=== PATIENT | female | born 1965 | race Caucasian/White ===

== ENCOUNTER 2016-05-30 18:35 | Emergency (ER) | payer OTHER ==
[~2016-05-30] VITALS: Ht 154.9 cm; Wt 104.3 kg
[~2016-05-30 18:35] MED LIST: No Historical Meds; VICO5TAB
[2016-05-30 18:36] VITALS: BP 125/84
[2016-05-30] MEDS ORDERED: ALBU17IN INH (19:01)
== END 2016-05-30 19:09 | disposition home or self-care (01) ==
LOC: M ED 19:00
DX: B34.9 Viral infection, unspecified (principal); Z76.0 Encounter for issue of repeat prescription; J44.9 Chronic obstructive pulmonary disease, unspecified; E66.9 Obesity, unspecified; F17.210 Nicotine dependence, cigarettes, uncomplicated; Z88.0 Allergy status to penicillin; Z91.012 Allergy to eggs

== ENCOUNTER 2016-07-07 16:14 | Emergency (ER) | payer OTHER ==
[~2016-07-07] VITALS: Ht 154.9 cm; Wt 106.6 kg
[~2016-07-07 16:14] MED LIST changes: +ALBU17IN INH
[2016-07-07 17:55] LABS: BASO % 0.3 % (0.0-1.0); EOS # 0.2 K/mm3 (0.0-0.50); EOS % 2.5 % (0.0-3.0); LARGE UNSTAINED CELL # 0.2 K/mm3 (0.0-0.4); LARGE UNSTAINED CELL % 1.7 % (0.0-4.0); LYMPH # 2.9 K/mm3 (1.5-4.5); MEAN CORPUSCULAR HGB CONC 32.2 g/dl (32.0-36.5); MEAN CORPUSCULAR VOLUME 93.3 fl (80.0-96.0); MONO # 0.5 K/mm3 (0.0-0.8); MONO % 4.7 % (0.0-5.0); NEUTROPHILS # 5.9 K/mm3 (1.8-7.7); NEUTROPHILS % 60.9 % (36.0-66.0); PLATELET COUNT, AUTOMATED 234 k/mm3 (150-450); RED CELL DISTRIBUTION WIDTH 13.2 % (11.5-14.5); WHITE BLOOD COUNT 9.6 K/mm3 (4.0-10.0)
[2016-07-07 18:01] LABS: ANION GAP 8 MEQ/L (8-16); BLOOD UREA NITROGEN 9 MG/DL (7-18); CALCIUM LEVEL 8.2 MG/DL (8.5-10.1); CARBON DIOXIDE LEVEL 30 MEQ/L (21-32); CHLORIDE LEVEL 104 MEQ/L (98-107); CREATININE FOR GFR 0.77 MG/DL (0.55-1.02); GLOMERULAR FILTRATION RATE > 60.0 (>51); GLUCOSE, FASTING 106 MG/DL (70-105); POTASSIUM SERUM 4.4 MEQ/L (3.5-5.1); SODIUM LEVEL 142 MEQ/L (136-145)
[2016-07-07] MEDS ORDERED: NAPR500T PO (18:11)
[2016-07-07] MEDS ORDERED: KETOROLAC 30 MG/ML VIAL (J1885) As Ordered ONE (18:14)
[2016-07-07] MEDS ORDERED: KETOROLAC 60 MG/2 ML VIAL (J1885) IM ONE (18:15)
[2016-07-07 18:41] VITALS: BP 139/82
--- NOTE | 2016-07-08 07:21 | REP ---
CERVICAL SPINE SERIES: Seven views of the cervical spine are performed. There is no compression fracture. There is normal cervical lordosis. There is no prevertebral soft tissue swelling. There is mild spurring of C6 and C7 both anteriorly and posteriorly with mild disc space narrowing and subchondral sclerosis at that level. Small ligamentous calcification is seen at the anterior margin of C5-6. There is diffuse sclerosis at the posterior facet joints. I do not see definite radiographic evidence of significant neural foraminal narrowing. IMPRESSION: Degenerative changes noted primarily at the C5-6 level. Signed by Rome Kumari MD 07/08/2016 07:51 P
== END 2016-07-07 18:42 | disposition home or self-care (01) ==
LOC: M ED 16:56
DX: M50.322 Other cervical disc degeneration at C5-C6 level (principal); F17.200 Nicotine dependence, unspecified, uncomplicated; Z88.0 Allergy status to penicillin; Z88.1 Allergy status to other antibiotic agents; Z91.012 Allergy to eggs; Z90.79 Acquired absence of other genital organ(s)
CPT/HCPCS: 36415; 72052; 80048; 85025; 96372; 99282; J1885

== ENCOUNTER 2016-09-08 22:42 | Emergency (ER) | payer OTHER ==
[~2016-09-08] VITALS: Ht 154.9 cm; Wt 105.6 kg
[~2016-09-08 22:42] MED LIST changes: +NAPR500T PO
[2016-09-08 22:48] VITALS: BP 131/75
--- NOTE | 2016-09-09 07:36 | REP ---
Left hand four views : There is no fracture or dislocation. Mineralization and joint spaces are normal. There are no calcifications or foreign bodies. Impression: Negative left hand. There is no change from the comparison study of 08/11/2014. . Signed by Rome Mckeon MD 09/09/2016 07:27 A
== END 2016-09-09 00:31 | disposition left against medical advice (07) ==
LOC: M ED 22:42
DX: Z53.29 Procedure and treatment not carried out because of patient's decision for other reasons (principal); S69.92XA Unspecified injury of left wrist, hand and finger(s), initial encounter; X58.XXXA Exposure to other specified factors, initial encounter; Y92.9 Unspecified place or not applicable; Y93.9 Activity, unspecified; Y99.9 Unspecified external cause status; F17.200 Nicotine dependence, unspecified, uncomplicated; Z90.79 Acquired absence of other genital organ(s); Z90.89 Acquired absence of other organs; Z88.0 Allergy status to penicillin; Z88.1 Allergy status to other antibiotic agents; Z91.012 Allergy to eggs

== ENCOUNTER → 2016-10-20 | Outpatient (CLI) | payer OTHER ==
[~2016-10-20] MED LIST changes: +IBUP-1022 PO; +MACR100C43 PO; +ROBA500T PO; +ZOFR4TAB3 PO
[2016-10-20 09:43] LABS: BASO % 0.4 % (0.0-1.0); EOS # 0.2 K/mm3 (0.0-0.50); EOS % 2.6 % (0.0-3.0); LARGE UNSTAINED CELL # 0.1 K/mm3 (0.0-0.4); LARGE UNSTAINED CELL % 1.7 % (0.0-4.0); LYMPH # 2.2 K/mm3 (1.5-4.5); LYMPH % 28.9 % (24.0-44.0); MEAN CORPUSCULAR HEMOGLOBIN 30.7 pg (27.0-33.0); MEAN CORPUSCULAR VOLUME 90.4 fl (80.0-96.0); MONO # 0.4 K/mm3 (0.0-0.8); MONO % 4.6 % (0.0-5.0); NEUTROPHILS # 4.8 K/mm3 (1.8-7.7); NEUTROPHILS % 61.8 % (36.0-66.0); PLATELET COUNT, AUTOMATED 225 k/mm3 (150-450); RED CELL DISTRIBUTION WIDTH 13.2 % (11.5-14.5); WHITE BLOOD COUNT 7.7 K/mm3 (4.0-10.0)
[2016-10-20 10:04] LABS: ALBUMIN 3.4 GM/DL (3.2-5.2); ALBUMIN/GLOBULIN RATIO 0.94 (1.00-1.93); ALKALINE PHOSPHATASE 84 U/L (45-117); ALT/SGPT 26 U/L (12-78); ANION GAP 8 MEQ/L (8-16); AST/SGOT 15 U/L (15-37); BILIRUBIN,TOTAL 0.4 MG/DL (0.2-1.0); BLOOD UREA NITROGEN 11 MG/DL (7-18); CALCIUM LEVEL 8.8 MG/DL (8.5-10.1); CARBON DIOXIDE LEVEL 29 MEQ/L (21-32); CHLORIDE LEVEL 106 MEQ/L (98-107); CHOLESTEROL LEVEL 240 MG/DL (<200); CREATININE FOR GFR 0.81 MG/DL (0.55-1.02); GLOMERULAR FILTRATION RATE > 60.0 (>51); GLUCOSE, FASTING 101 MG/DL (70-105); SODIUM LEVEL 143 MEQ/L (136-145); TRIGLYCERIDES LEVEL 181 MG/DL (<150)
== END ==
LOC: M LAB 09:13
PROVIDERS: ATTEND Family Medicine Addiction Medicine
DX: E78.2 Mixed hyperlipidemia (principal)

== ENCOUNTER → 2016-11-19 | Outpatient (CLI) | payer OTHER ==
[2016-11-19 17:13] LABS: FREE T4 0.76 NG/DL (0.76-1.46)
--- NOTE | 2016-11-19 21:36 | ECGEPIP ---
Stationary ECG Study [facility] Test Date: 2016-11-19 Pat Name: BLAINE BERGER Department: Room: - Gender: F Television Inspector: EZEKIEL : 1965 Requested By: Kenny Romero Order Number: [id number] Reading MD: Chad Hebert Measurements Intervals [place] Rate: 89 P: 38 LA: 124 QRS: 54 QRSD: 88 T: 42 QT: 349 QTc: 426 Interpretive Statements SINUS RHYTHM COMPARED TO THE LAST 2 TRACINGS IN THE SYSTEM, NO SIGNIFICANT CHANGES Electronically Signed On 11-19-2016 21:36:27 EDT by Chad Hebert
== END ==
LOC: M LAB 15:52
PROVIDERS: ATTEND Family Medicine Addiction Medicine
DX: R53.83 Other fatigue (principal); R07.9 Chest pain, unspecified

== ENCOUNTER → 2016-12-03 | Outpatient (CLI) | payer OTHER ==
--- NOTE | 2016-12-03 14:40 | REPMRS ---
Patient History The patient states she has not had a clinical breast exam in over a year. Patient is postmenopausal and has history of ovarian cancer at age 42. Family history of unknown cancer in 2 maternal aunts at age 50 or over, unknown cancer in paternal cousin under age 50, prostate cancer in maternal uncle at age 50 or over, prostate cancer in paternal uncle at age 50 or over, and unknown cancer in paternal uncle at age 50 or over. Digital Woman Screen Mammo: December 03, 2016 - Exam #: [id number] Bilateral MLO and CC view(s) were taken. CV view(s) were taken of the right breast. Technologist: Leeanna Kenyon, Technologist Prior study comparison: September 15, 2015, digital woman screen mammo performed at [facility]. July 16, 2014, bilateral digital mammo screening bilat, performed at [facility]. June 18, 2011, digital woman screen mammo performed at [facility]. FINDINGS: There are scattered fibroglandular densities. There has been no change in the appearance of the mammogram from the prior studies. There is a mild amount of scattered fibroglandular density which is fairly symmetric. There is no interval development of dominant mass, architectural distortion, or clustered microcalcification suggestive of malignancy. ASSESSMENT: BI-RADS/ACR category 1 mammogram. Negative. Recommendation Routine screening mammogram in 1 year (for women over age 40). This mammogram was interpreted with the aid of an FDA-approved computer-aided dectection system. Electronically Signed By: Oren Matson MD 12/03/16 [id number]
== END ==
LOC: M WHC 13:11
PROVIDERS: ATTEND Family Medicine Addiction Medicine
DX: Z12.31 Encounter for screening mammogram for malignant neoplasm of breast (principal)

== ENCOUNTER 2016-12-11 16:22 | Emergency (ER) | payer OTHER ==
[~2016-12-11] VITALS: Ht 154.9 cm; Wt 105.4 kg
[~2016-12-11 16:22] MED LIST changes: -IBUP-1022 PO; -MACR100C43 PO; -ROBA500T PO; -ZOFR4TAB3 PO
[2016-12-11] MEDS ORDERED: IBUP-1022 PO (17:39)
[2016-12-11] MEDS ORDERED: ROBA500T PO (17:39)
[2016-12-11 18:08] VITALS: BP 138/74
== END 2016-12-11 18:09 | disposition home or self-care (01) ==
LOC: M ED 16:22
DX: S16.1XXA Strain of muscle, fascia and tendon at neck level, initial encounter (principal); M54.89 Other dorsalgia; W19.XXXA Unspecified fall, initial encounter; Y92.019 Unspecified place in single-family (private) house as the place of occurrence of the external cause; Y93.89 Activity, other specified; Y99.8 Other external cause status; F17.210 Nicotine dependence, cigarettes, uncomplicated; Z88.0 Allergy status to penicillin; Z88.1 Allergy status to other antibiotic agents; Z91.030 Bee allergy status; Z91.012 Allergy to eggs

== ENCOUNTER 2016-12-31 21:15 | Emergency (ER) | payer MEDICAID, OTHER, SELFPAY ==
[~2016-12-31] VITALS: Ht 154.9 cm; Wt 105.9 kg
[~2016-12-31 21:15] MED LIST changes: +IBUP-1022 PO; +ROBA500T PO
[2016-12-31] MEDS ORDERED: ONDANSETRON 4MG/2ML VIAL (J2405) IV ONE (22:30)
[2016-12-31] MEDS ORDERED: MECLIZINE 25 MG TABLET PO ONE (22:30)
[2016-12-31] MEDS ORDERED: NS 1,000 ML IV ONE (22:30)
[2016-12-31 23:06] LABS: BASO % 0.3 % (0.0-1.0); EOS % 0.4 % (0.0-3.0); IMMATURE GRANULOCYTE % 0.3 % (0-0); LYMPH % 18.9 % (24.0-44.0); MEAN CORPUSCULAR HEMOGLOBIN 29.8 pg (27.0-33.0); MEAN CORPUSCULAR HGB CONC 33.3 g/dl (32.0-36.5); MEAN CORPUSCULAR VOLUME 89.7 fl (80.0-96.0); MONO # 0.5 10^3/uL (0.0-0.8); MONO % 4.3 % (0.0-5.0); NEUTROPHILS % 75.8 % (36.0-66.0); PLATELET COUNT, AUTOMATED 267 10^3/uL (150-450); RED CELL DISTRIBUTION WIDTH 13.1 % (11.5-14.5); WHITE BLOOD COUNT 10.6 10^3/uL (4.0-10.0)
[2016-12-31 23:32] LABS: FREE T4 0.93 NG/DL (0.76-1.46); MAGNESIUM LEVEL 2.1 MG/DL (1.8-2.4)
[2016-12-31 23:38] LABS: ALBUMIN 3.7 GM/DL (3.2-5.2); ALBUMIN/GLOBULIN RATIO 0.95 (1.00-1.93); ALKALINE PHOSPHATASE 89 U/L (45-117); ALT/SGPT 29 U/L (12-78); ANION GAP 5 MEQ/L (8-16); AST/SGOT 16 U/L (7-37); BILIRUBIN,DIRECT < 0.1 MG/DL (0.0-0.2); BILIRUBIN,TOTAL 0.5 MG/DL (0.2-1.0); BLOOD UREA NITROGEN 9 MG/DL (7-18); CALCIUM LEVEL 9.2 MG/DL (8.5-10.1); CARBON DIOXIDE LEVEL 29 MEQ/L (21-32); CHLORIDE LEVEL 105 MEQ/L (98-107); CREATININE FOR GFR 0.78 MG/DL (0.55-1.02); GLOMERULAR FILTRATION RATE > 60.0 (>51); GLUCOSE, FASTING 123 MG/DL (70-105); POTASSIUM SERUM 4.2 MEQ/L (3.5-5.1); SODIUM LEVEL 139 MEQ/L (136-145); TOTAL PROTEIN 7.6 GM/DL (6.4-8.2)
[2017-01-01 00:42] VITALS: BP 139/73
[2017-01-01] MEDS ORDERED: ZOFR4TAB3 PO (00:43)
[2017-01-01] MEDS ORDERED: MACR100C43 PO (00:43)
== END 2017-01-01 01:04 | disposition home or self-care (01) ==
LOC: M ED 21:15
DX: N39.0 Urinary tract infection, site not specified (principal)
CPT/HCPCS: 36415; 80048; 80076; 81001; 83690; 83735; 84439; 84443; 85025; 87086; 96374; 99284; J2405

== ENCOUNTER 2017-01-25 20:22 | Emergency (ER) | payer SELFPAY ==
[~2017-01-25] VITALS: Ht 154.9 cm; Wt 105.5 kg
[~2017-01-25 20:22] MED LIST changes: +MACR100C43 PO; +ZOFR4TAB3 PO
[2017-01-25 20:36] VITALS: BP 133/80
[2017-01-25] MEDS ORDERED: TYLE325T5 PO (20:41)
== END 2017-01-25 22:20 | disposition left against medical advice (07) ==
LOC: M ED 20:22
DX: Z53.21 Procedure and treatment not carried out due to patient leaving prior to being seen by health care provider (principal)

== ENCOUNTER 2017-02-24 00:31 | Emergency (ER) | payer MEDICAID, SELFPAY ==
[2017-02-24] MEDS: MORPHINE 10 MG/ML 1ML VIAL IM (04:44)
[2017-02-24] MEDS: NORCO 5/325MG TABLET (BULK FOR ED) PO (07:00)
== END 2017-02-24 07:07 | disposition home or self-care (01) ==
LOC: M ED 00:31
DX: M25.561 Pain in right knee (principal); X50.9XXA Other and unspecified overexertion or strenuous movements or postures, initial encounter; Y92.89 Other specified places as the place of occurrence of the external cause; Y99.8 Other external cause status; M19.90 Unspecified osteoarthritis, unspecified site; F17.210 Nicotine dependence, cigarettes, uncomplicated; Z88.1 Allergy status to other antibiotic agents; Z88.0 Allergy status to penicillin; Z91.012 Allergy to eggs; Z91.030 Bee allergy status
CPT/HCPCS: 73560

== ENCOUNTER 2017-04-30 09:44 | Outpatient (RCR) | payer OTHER | END 2017-05-25 | LOC: M PT 09:44 | DX: S83.281D Other tear of lateral meniscus, current injury, right knee, subsequent encounter (principal); S83.241D Other tear of medial meniscus, current injury, right knee, subsequent encounter; X58.XXXD Exposure to other specified factors, subsequent encounter; Y92.89 Other specified places as the place of occurrence of the external cause | CPT/HCPCS: 97110 ==

== ENCOUNTER 2017-05-28 09:01 | Outpatient (RCR) | payer OTHER | END 2017-06-24 | LOC: M PT 09:01 | DX: Z51.89 Encounter for other specified aftercare (principal); S83.241D Other tear of medial meniscus, current injury, right knee, subsequent encounter; S83.281D Other tear of lateral meniscus, current injury, right knee, subsequent encounter | CPT/HCPCS: 97010 ==

== ENCOUNTER 2017-07-28 21:54 | Emergency (ER) | payer OTHER | END 2017-07-28 23:53 | disposition home or self-care (01) | LOC: M ED 21:54 | DX: S50.11XA Contusion of right forearm, initial encounter (principal); S60.222A Contusion of left hand, initial encounter; W23.0XXA Caught, crushed, jammed, or pinched between moving objects, initial encounter; Y92.410 Unspecified street and highway as the place of occurrence of the external cause; F17.210 Nicotine dependence, cigarettes, uncomplicated; Z88.1 Allergy status to other antibiotic agents; Z88.0 Allergy status to penicillin; Z91.012 Allergy to eggs; Z91.030 Bee allergy status | CPT/HCPCS: 73090 ==

== ENCOUNTER 2017-09-01 18:24 | Emergency (ER) | payer OTHER ==
[2017-09-01] MEDS: ACETAMINOPH W/CODEINE #3 TAB UD PO (20:45)
[2017-09-01] MEDS: valACYclovir HCL 500 MG TAB PO (20:45)
[2017-09-01] MEDS: DOXYCYCLINE HYCLATE 100 MG TAB PO (20:45)
== END 2017-09-01 20:58 | disposition home or self-care (01) ==
LOC: M ED 18:24
DX: B02.9 Zoster without complications (principal); J06.9 Acute upper respiratory infection, unspecified; R05 Cough; F17.200 Nicotine dependence, unspecified, uncomplicated; Z88.1 Allergy status to other antibiotic agents; Z88.0 Allergy status to penicillin; Z91.012 Allergy to eggs; Z91.030 Bee allergy status
CPT/HCPCS: 71046

== ENCOUNTER 2018-06-19 23:01 | Emergency (ER) | payer OTHER ==
[~2018-06-19] VITALS: Ht 154.9 cm; Wt 105.5 kg
[2018-06-19 23:01] VITALS: BP 159/90
[~2018-06-19 23:01] MED LIST changes: +CHERSYP3 PO; +DOXY-350 PO; +GABA-843 PO; +NAPR-837 PO; -NAPR500T PO; +PROAAER10 INH; +TYLE325T5 PO; +VALA1TAB2 PO; +ZOFR4TAB14 PO; -ZOFR4TAB3 PO
[2018-06-19] MEDS ORDERED: NAPROXEN 250 MG TAB PO ONE (23:30)
[2018-06-19] MEDS ORDERED: NAPR-837 PO (23:50)
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
== END 2018-06-20 00:02 | disposition home or self-care (01) ==
LOC: M ED 23:01
DX: S50.11XA Contusion of right forearm, initial encounter (principal); W22.09XA Striking against other stationary object, initial encounter; Y92.89 Other specified places as the place of occurrence of the external cause; Y99.0 Civilian activity done for income or pay; Z88.0 Allergy status to penicillin; Z88.1 Allergy status to other antibiotic agents; Z91.030 Bee allergy status; Z91.012 Allergy to eggs

== ENCOUNTER 2018-08-03 21:06 | Emergency (ER) | payer OTHER ==
[~2018-08-03] VITALS: Ht 154.9 cm; Wt 108.6 kg
[2018-08-03 21:08] VITALS: BP 151/77
[2018-08-03] MEDS ORDERED: IBUP-1022 PO (21:44)
[2018-08-03] MEDS ORDERED: ROBA500T PO (21:44)
[2018-08-03] MEDS ORDERED: KETOROLAC 60 MG/2 ML VIAL (J1885) IM ONE (21:45)
[2018-08-03] MEDS ORDERED: CYCLOBENZAPRINE 10 MG TAB PO ONE (21:45)
== END 2018-08-03 22:35 | disposition home or self-care (01) ==
LOC: M ED 21:06
DX: S29.012A Strain of muscle and tendon of back wall of thorax, initial encounter (principal); X50.0XXA Overexertion from strenuous movement or load, initial encounter; Y92.090 Kitchen in other non-institutional residence as the place of occurrence of the external cause; Y93.89 Activity, other specified; Y99.9 Unspecified external cause status; M19.90 Unspecified osteoarthritis, unspecified site; Z85.9 Personal history of malignant neoplasm, unspecified; Z72.0 Tobacco use; Z79.899 Other long term (current) drug therapy; Z88.0 Allergy status to penicillin; Z88.1 Allergy status to other antibiotic agents; Z91.012 Allergy to eggs; Z91.030 Bee allergy status
CPT/HCPCS: 96372; 99283; J1885

== ENCOUNTER 2018-08-14 12:07 | Emergency (ER) | payer OTHER ==
[~2018-08-14] VITALS: Ht 154.9 cm; Wt 105.6 kg
[2018-08-14] MEDS ORDERED: ALLE1TAB23 PO (12:15)
[2018-08-14] MEDS ORDERED: IPRATROPIUM 0.5MG/ALBUTEROL 2.5MG INH SOL UD 3ML (DUONEB)(J7620) NEB ONE (12:45)
[2018-08-14] MEDS ORDERED: VENTAER INH (13:40)
[2018-08-14] MEDS ORDERED: PRED20TA PO (13:40)
[2018-08-14 13:49] VITALS: BP 130/67
[2018-08-14] MEDS ORDERED: ZOFR4TAB16 PO (13:49)
--- NOTE | 2018-08-14 13:55 | REP ---
REASON: Cough. COMPARISON: 09/01/2017 FINDINGS: The superior mediastinal structures are midline. The cardiac silhouette is unremarkable in size, shape, and position. The diaphragmatic surfaces of the lungs are regular, and the costophrenic angles are clear. The pulmonary stewart are clear. The imaged osseous structures are intact. IMPRESSION: There is no acute cardiopulmonary disease. Electronically Signed by José Miguel Gutierres DO 08/14/2018 03:04 P
== END 2018-08-14 13:51 | disposition home or self-care (01) ==
LOC: M ED 12:07
DX: J20.9 Acute bronchitis, unspecified (principal); Z72.0 Tobacco use; Z79.899 Other long term (current) drug therapy; Z88.0 Allergy status to penicillin; Z88.1 Allergy status to other antibiotic agents; Z91.030 Bee allergy status; Z91.012 Allergy to eggs

== ENCOUNTER 2018-09-17 21:35 | Emergency (ER) | payer OTHER ==
[~2018-09-17] VITALS: Ht 154.9 cm; Wt 105.5 kg
[~2018-09-17 21:35] MED LIST changes: +ALLE1TAB23 PO; +PRED20TA PO; +VENTAER INH; +ZOFR4TAB16 PO
[2018-09-17 21:36] VITALS: BP 135/81
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
== END 2018-09-17 23:05 | disposition home or self-care (01) ==
LOC: M ED 21:35
DX: S83.91XA Sprain of unspecified site of right knee, initial encounter (principal); X58.XXXA Exposure to other specified factors, initial encounter; Y92.410 Unspecified street and highway as the place of occurrence of the external cause; Y93.9 Activity, unspecified; Y99.9 Unspecified external cause status; Z88.0 Allergy status to penicillin; Z88.1 Allergy status to other antibiotic agents; Z91.012 Allergy to eggs; Z91.030 Bee allergy status

== ENCOUNTER → 2018-10-15 | Outpatient (CLI) | payer OTHER | LOC: M RAD 16:56 | PROVIDERS: ATTEND Orthopaedic Surgery | DX: M25.561 Pain in right knee (principal); Z53.9 Procedure and treatment not carried out, unspecified reason ==

== ENCOUNTER 2019-02-08 16:54 | Emergency (ER) | payer OTHER ==
[~2019-02-08] VITALS: Ht 154.9 cm; Wt 106.4 kg
[~2019-02-08 16:54] MED LIST changes: -VALA1TAB2 PO; +VALA1TAB64 PO
[2019-02-08] MEDS ORDERED: LIDOCAINE 5% OINT 30 GM TOP STA (17:54)
[2019-02-08] MEDS ORDERED: ACETAMINOPHEN 325 MG TAB PO ONE (18:00)
--- NOTE | 2019-02-08 18:26 | REPVR ---
PROCEDURE INFORMATION: Exam: US Duplex Left Upper Extremity Veins, Limited Exam date and time: 02/08/2019 6:02 PM Age: 53 years old Clinical history: Pain; Arm, upper; Left; Additional info: L upper arm pain, no daron TECHNIQUE: Imaging protocol: Real-time Duplex ultrasound of the Left Upper Extremity with 2-D padilla scale, color Doppler flow and spectral waveform analysis with image documentation. Limited exam focused on the left upper extremity veins. COMPARISON: No relevant prior studies available. FINDINGS: Left deep veins: Unremarkable. Axillary and brachial veins are patent throughout without thrombus. Normal Doppler waveforms. Normal compressibility and/or augmentation response. Visualized internal jugular and subclavian veins are patent. Left superficial veins: Unremarkable. Visualized cephalic and basilic veins are patent without thrombus. Soft tissues: Unremarkable. IMPRESSION: No DVT of the left upper extremity. Electronically signed by: Maciel Zaragoza On 02/08/2019 18:26:08 PM
--- NOTE | 2019-02-08 18:55 | REP ---
Left shoulder: Three views. History: Left upper arm and shoulder pain. Findings: The left glenohumeral and acromioclavicular joints are normally aligned. There is mild hypertrophy at the AC joint consistent with osteoarthritis. Periarticular soft tissues are unremarkable. Impression: Mild AC joint osteoarthritis. Otherwise negative left shoulder radiographs. Electronically Signed by Vega Matson MD 02/08/2019 06:46 P
[2019-02-08 19:07] VITALS: BP 125/69
[2019-02-08] MEDS ORDERED: LIDO4CRE4 TOP (19:11)
== END 2019-02-08 19:18 | disposition home or self-care (01) ==
LOC: M ED 16:54
DX: M75.22 Bicipital tendinitis, left shoulder (principal); M19.012 Primary osteoarthritis, left shoulder; J45.909 Unspecified asthma, uncomplicated; J44.9 Chronic obstructive pulmonary disease, unspecified; Z88.0 Allergy status to penicillin; Z88.1 Allergy status to other antibiotic agents; Z91.012 Allergy to eggs; Z91.030 Bee allergy status; F17.210 Nicotine dependence, cigarettes, uncomplicated

== ENCOUNTER 2019-06-16 06:52 | Emergency (ER) | payer OTHER ==
[~2019-06-16] VITALS: Ht 154.9 cm; Wt 106.9 kg
[2019-06-16 06:52] VITALS: BP 145/94
[~2019-06-16 06:52] MED LIST changes: +LIDO4CRE4 TOP; +VALA1TAB5 PO; -VALA1TAB64 PO
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
== END 2019-06-16 07:48 | disposition home or self-care (01) ==
LOC: M ED 06:52
DX: S67.192A Crushing injury of right middle finger, initial encounter (principal); W23.0XXA Caught, crushed, jammed, or pinched between moving objects, initial encounter; Y92.019 Unspecified place in single-family (private) house as the place of occurrence of the external cause; J45.909 Unspecified asthma, uncomplicated; F17.210 Nicotine dependence, cigarettes, uncomplicated; Z88.0 Allergy status to penicillin; Z88.8 Allergy status to other drugs, medicaments and biological substances; Z91.012 Allergy to eggs; Z91.030 Bee allergy status; Z79.51 Long term (current) use of inhaled steroids

== ENCOUNTER → 2019-06-22 | Outpatient (REF) | payer OTHER, MEDICAID ==
[2019-06-22 12:48] LABS: BASO % 0.2 % (0.0-1.0); EOS # 0.2 10^3/uL (0.0-0.5); EOS % 2.2 % (0.0-3.0); HEMATOCRIT 46.4 % (36.0-47.0); HEMOGLOBIN 15.4 g/dl (12.0-15.5); LYMPH # 2.5 10^3/uL (1.5-5.0); LYMPH % 26.5 % (24.0-44.0); MEAN CORPUSCULAR HGB CONC 33.2 g/dl (32.0-36.5); MEAN CORPUSCULAR VOLUME 90.3 fl (80.0-96.0); MONO # 0.5 10^3/uL (0.0-0.8); MONO % 5.6 % (0.0-5.0); NEUTROPHILS # 6.1 10^3/uL (1.5-8.5); NEUTROPHILS % 65.2 % (36.0-66.0); PLATELET COUNT, AUTOMATED 244 10^3/uL (150-450); RED BLOOD COUNT 5.14 10^6/uL (4.00-5.40); WHITE BLOOD COUNT 9.3 10^3/uL (4.0-10.0)
[2019-06-22 13:00] LABS: ALBUMIN 3.5 GM/DL (3.2-5.2); ALT/SGPT 25 U/L (12-78); BILIRUBIN,TOTAL 0.6 MG/DL (0.2-1.0); BLOOD UREA NITROGEN 9 MG/DL (7-18); CALCIUM LEVEL 8.8 MG/DL (8.5-10.1); CARBON DIOXIDE LEVEL 28 MEQ/L (21-32); CHLORIDE LEVEL 105 MEQ/L (98-107); CHOLESTEROL LEVEL 255 MG/DL (<200); CREATININE FOR GFR 0.77 MG/DL (0.55-1.30); FREE T4 0.92 NG/DL (0.76-1.46); GLOMERULAR FILTRATION RATE > 60.0 (>51); GLUCOSE, FASTING 109 MG/DL (70-100); HDL CHOLESTEROL 38 MG/DL (>40); LDL CHOLESTEROL 172 MG/DL (<100); NON-HDL-C 217 MG/DL; POTASSIUM SERUM 4.3 MEQ/L (3.5-5.1); SODIUM LEVEL 138 MEQ/L (136-145); TOTAL PROTEIN 7.1 GM/DL (6.4-8.2); TRIGLYCERIDES LEVEL 223 MG/DL (<150)
[2019-06-22 13:01] LABS: TOTAL 25(OH) VITAMIN D 10.5 NG/ML (30.0-100.0)
[2019-06-22 13:35] LABS: HEMOGLOBIN A1c 6.5 %
== END ==
LOC: M LAB REF 12:21
PROVIDERS: ATTEND Nurse Practitioner Family
DX: Z13.9 Encounter for screening, unspecified (principal); R53.83 Other fatigue; R07.9 Chest pain, unspecified; Z72.0 Tobacco use; E78.2 Mixed hyperlipidemia; E66.9 Obesity, unspecified; K21.9 Gastro-esophageal reflux disease without esophagitis; F41.9 Anxiety disorder, unspecified; J45.909 Unspecified asthma, uncomplicated

== ENCOUNTER → 2019-07-03 | Outpatient (CLI) | payer OTHER ==
[~2019-07-03] MED LIST changes: +ATOR1TAB21 PO; +IBUP80TA PO; +VITA50005 PO
--- NOTE | 2019-07-03 15:29 | REPMRS ---
Patient History The patient states she has not had a clinical breast exam in over a year. Family history of unknown cancer at age 50 or over in maternal aunt, unknown cancer under age 50 in maternal aunt, prostate cancer at age 50 or over in maternal uncle, prostate cancer at age 50 or over in paternal uncle, unknown cancer at age 50 or over in paternal uncle, unknown cancer under age 50 in paternal cousin. Digital Woman Screen Mammo: July 03, 2019 - Exam #: [id number] Bilateral CC and MLO view(s) were taken. Technologist: Anali Santillan, Technologist Prior study comparison: December 03, 2016, digital woman screen mammo performed at [facility]. September 15, 2015, digital woman screen mammo performed at [facility]. July 16, 2014, bilateral digital mammo screening bilat, performed at [facility]. FINDINGS: The breast tissue is almost entirely fat. The Volpara volumetric breast density category is: A. There has been no change in the appearance of the mammogram from the prior studies. There is no interval development of dominant mass, architectural distortion, or grouped microcalcification typical of malignancy. 3-D tomosynthesis shows no additional findings. Assessment: BI-RADS/ACR category 1 mammogram. Negative Mammogram. Recommendation Routine screening mammogram of both breasts in 1 year (for women over age 40). This patient's Lifetime Breast Cancer RIsk is estimated at 6.7 %. This mammogram was interpreted with the aid of an FDA-approved computer-aided dectection system. Electronically Signed By: Oren Matson MD 07/03/19 [id number]
== END ==
LOC: M WHC 14:03
PROVIDERS: ATTEND Nurse Practitioner Family
DX: Z12.31 Encounter for screening mammogram for malignant neoplasm of breast (principal)

== ENCOUNTER 2019-07-10 15:25 | Emergency (ER) | payer OTHER ==
[~2019-07-10] VITALS: Ht 154.9 cm; Wt 106.8 kg
[~2019-07-10 15:25] MED LIST changes: -ATOR1TAB21 PO; -IBUP80TA PO; -VITA50005 PO
[2019-07-10 15:27] VITALS: BP 105/82
[2019-07-10] MEDS ORDERED: ATOR1TAB21 PO (15:40)
[2019-07-10] MEDS ORDERED: VITA50005 PO (15:40)
[2019-07-10 17:28] LABS: BASO % 0.3 % (0.0-1.0); EOS # 0.2 10^3/uL (0.0-0.5); EOS % 2.6 % (0.0-3.0); HEMATOCRIT 44.7 % (36.0-47.0); LYMPH # 3.1 10^3/uL (1.5-5.0); LYMPH % 35.5 % (24.0-44.0); MEAN CORPUSCULAR HEMOGLOBIN 30.4 pg (27.0-33.0); MEAN CORPUSCULAR HGB CONC 33.6 g/dl (32.0-36.5); MEAN CORPUSCULAR VOLUME 90.5 fl (80.0-96.0); MONO # 0.5 10^3/uL (0.0-0.8); MONO % 5.9 % (0.0-5.0); NEUTROPHILS # 4.9 10^3/uL (1.5-8.5); NEUTROPHILS % 55.5 % (36.0-66.0); PLATELET COUNT, AUTOMATED 241 10^3/uL (150-450); RED BLOOD COUNT 4.94 10^6/uL (4.00-5.40); WHITE BLOOD COUNT 8.8 10^3/uL (4.0-10.0)
--- NOTE | 2019-07-10 17:35 | REP ---
ELBOW: REASON FOR EXAM: Atraumatic elbow pain. FINDINGS: There is no acute fracture, dislocation, subluxation, or joint effusion. There is a lateral supracondylar distal humeral spur. Electronically Signed by José Miguel Gutierres DO 07/11/2019 08:24 A
[2019-07-10 17:58] LABS: C REACTIVE PROTEIN QUANTITATIV 1.05 MG/DL (0.00-0.30)
[2019-07-10 18:06] LABS: ERYTHROCYTE SEDIMENTATION RATE 20 mm/hr (0-30)
[2019-07-10] MEDS ORDERED: IBUPROFEN 800 MG TAB PO ONE (18:30)
[2019-07-10 18:37] LABS: URIC ACID 5.9 MG/DL (2.6-6.0)
[2019-07-10] MEDS ORDERED: IBUP80TA PO (19:04)
== END 2019-07-10 19:13 | disposition home or self-care (01) ==
LOC: M ED 15:25
DX: M77.11 Lateral epicondylitis, right elbow (principal); E11.9 Type 2 diabetes mellitus without complications; J45.909 Unspecified asthma, uncomplicated; E78.5 Hyperlipidemia, unspecified; Z88.0 Allergy status to penicillin; Z88.1 Allergy status to other antibiotic agents; Z91.018 Allergy to other foods; Z91.030 Bee allergy status; F17.210 Nicotine dependence, cigarettes, uncomplicated

== ENCOUNTER 2019-11-19 15:49 | Emergency (ER) | payer OTHER, MEDICAID ==
[~2019-11-19] VITALS: Ht 154.9 cm; Wt 105.5 kg
[~2019-11-19 15:49] MED LIST changes: +ATOR1TAB21 PO; +IBUP80TA PO; +VITA50005 PO
--- NOTE | 2019-11-19 16:30 | REPVR ---
PROCEDURE INFORMATION: Exam: XR Left Foot Complete Exam date and time: 11/19/2019 3:57 PM Age: 54 years old Clinical indication: Pain; Foot; Left; Additional info: Injury TECHNIQUE: Imaging protocol: XR Left foot. Views: 3 or more views. COMPARISON: No relevant prior studies available. FINDINGS: Bones/joints: There is a vertical lucent line medial portion of the navicular probably representing a hairline fracture or area of bony trabecular injury. There is hallux valgus. There is a large plantar calcaneal spur. Soft tissues: There is soft tissue swelling at the medial aspect of the foot. IMPRESSION: Hairline fracture or area of bony trabecular injury medial aspect of the navicular with soft tissue swelling. Electronically signed by: Sandeep Franco On 11/19/2019 16:30:25 PM
[2019-11-19] MEDS ORDERED: LIDOCAINE 4% CREAM 5GM (LMX4) TOP ONE (18:30)
[2019-11-19 18:45] VITALS: BP 127/74
== END 2019-11-19 18:55 | disposition home or self-care (01) ==
LOC: M ED 15:49
DX: S92.255A Nondisplaced fracture of navicular [scaphoid] of left foot, initial encounter for closed fracture (principal); W22.8XXA Striking against or struck by other objects, initial encounter; Y92.019 Unspecified place in single-family (private) house as the place of occurrence of the external cause; Y99.9 Unspecified external cause status; E11.9 Type 2 diabetes mellitus without complications; E78.5 Hyperlipidemia, unspecified; J45.909 Unspecified asthma, uncomplicated; F17.200 Nicotine dependence, unspecified, uncomplicated; Z88.0 Allergy status to penicillin; Z88.1 Allergy status to other antibiotic agents; Z91.030 Bee allergy status; Z91.012 Allergy to eggs; Z79.51 Long term (current) use of inhaled steroids

== ENCOUNTER 2019-12-14 09:56 | Emergency (ER) | payer MEDICAID, OTHER ==
[~2019-12-14] VITALS: Ht 154.9 cm; Wt 108.9 kg
[2019-12-14 09:56] VITALS: BP 136/84
[2019-12-14] MEDS ORDERED: POLYSOL OP (10:49)
== END 2019-12-14 11:02 | disposition home or self-care (01) ==
LOC: M ED 09:56
DX: H10.32 Unspecified acute conjunctivitis, left eye (principal); H54.61 Unqualified visual loss, right eye, normal vision left eye; Z87.891 Personal history of nicotine dependence; Z88.0 Allergy status to penicillin; Z88.1 Allergy status to other antibiotic agents; Z91.012 Allergy to eggs; Z91.030 Bee allergy status

== ENCOUNTER → 2020-06-06 | Outpatient (REF) | payer OTHER ==
[~2020-06-06] MED LIST changes: +GABA-282 PO; -GABA-843 PO; +POLYSOL OP
[2020-06-06 14:03] LABS: BASO % 0.5 % (0.0-1.0); EOS # 0.2 10^3/uL (0.0-0.5); EOS % 2.8 % (0.0-3.0); HEMATOCRIT 45.8 % (36.0-47.0); HEMOGLOBIN 14.7 g/dl (12.0-15.5); LYMPH # 2.5 10^3/uL (1.5-5.0); LYMPH % 33.4 % (24.0-44.0); MEAN CORPUSCULAR HEMOGLOBIN 30.1 pg (27.0-33.0); MEAN CORPUSCULAR HGB CONC 32.1 g/dl (32.0-36.5); MEAN CORPUSCULAR VOLUME 93.9 fl (80.0-96.0); MONO # 0.5 10^3/uL (0.0-0.8); MONO % 6.2 % (2.0-8.0); NEUTROPHILS # 4.2 10^3/uL (1.5-8.5); PLATELET COUNT, AUTOMATED 227 10^3/uL (150-450); RED BLOOD COUNT 4.88 10^6/uL (4.00-5.40); WHITE BLOOD COUNT 7.4 10^3/uL (4.0-10.0)
[2020-06-06 14:22] LABS: HEMOGLOBIN A1c 6.1 %
[2020-06-06 14:44] LABS: ALBUMIN 3.3 GM/DL (3.2-5.2); ALT/SGPT 25 U/L (12-78); BILIRUBIN,TOTAL 0.4 MG/DL (0.2-1.0); BLOOD UREA NITROGEN 8 MG/DL (7-18); CALCIUM LEVEL 8.8 MG/DL (8.5-10.1); CARBON DIOXIDE LEVEL 31 MEQ/L (21-32); CHLORIDE LEVEL 107 MEQ/L (98-107); CHOLESTEROL LEVEL 245 MG/DL (<200); CHOLESTEROL RISK RATIO 6.621 (<5); FREE T4 0.82 NG/DL (0.76-1.46); GLOMERULAR FILTRATION RATE > 60.0 (>51); GLUCOSE, FASTING 109 MG/DL (70-100); HDL CHOLESTEROL 37 MG/DL (>40); LDL CHOLESTEROL 171 MG/DL (<100); NON-HDL-C 208 MG/DL; POTASSIUM SERUM 4.3 MEQ/L (3.5-5.1); SODIUM LEVEL 141 MEQ/L (136-145); TOTAL PROTEIN 6.8 GM/DL (6.4-8.2); TRIGLYCERIDES LEVEL 186 MG/DL (<150)
[2020-06-06 14:45] LABS: TOTAL 25(OH) VITAMIN D 10.1 NG/ML (30.0-100.0)
== END ==
LOC: M LAB REF 12:45
PROVIDERS: ATTEND Nurse Practitioner Family
DX: E78.2 Mixed hyperlipidemia (principal); K21.9 Gastro-esophageal reflux disease without esophagitis; K59.09 Other constipation; E55.9 Vitamin D deficiency, unspecified

== ENCOUNTER → 2020-07-06 | Outpatient (CLI) | payer OTHER ==
--- NOTE | 2020-07-06 16:07 | REPMRS ---
Patient History The patient states she has not had a clinical breast exam in over a year. Patient is postmenopausal and has history of ovarian cancer at age 42. Family history of unknown cancer at age 50 or over in maternal aunt, unknown cancer under age 50 in maternal aunt, prostate cancer at age 50 or over in maternal uncle, prostate cancer at age 50 or over in paternal uncle, unknown cancer at age 50 or over in paternal uncle, unknown cancer under age 50 in paternal cousin. No Hormone Replacement Therapy Patient states no breast complaints today. Patient has signed MRS History Sheet. Digital Woman Screen Mammo: July 06, 2020 - Exam #: [id number] Bilateral CC and MLO view(s) were taken. Technologist: Adrianna Graham Collar Stay Fuser Tender Prior study comparison: July 03, 2019, bilateral digital woman screen mammo performed at [facility]. December 03, 2016, digital woman screen mammo performed at [facility]. FINDINGS: There are scattered fibroglandular densities. Screening. Digital screening (2D) mammography was performed bilaterally in the CC and MLO projections. Additionally, breast tomosynthesis (3D mammography) was performed bilaterally in the CC and MLO projections. Todays exam was compared to the prior exams. By history, the patient has no complaints of a palpable breast abnormality or other significant breast complaints. The breasts are unchanged in size and shape. There are no eliz-soft tissue densities or spiculated masses. There is no internal architectural distortion.Once again, stable benign appearing calcifications are seen. There are no suspicious eliz-calcific clusters. Skin thickening or nipple retraction is not present. IMPRESSION: BI-RADS Category 2- Benign Findings. There is no evidence of malignant alteration of the breasts. Followup examination recommended in one year. The Volpara volumetric breast density category is B, there are scattered areas of fibroglandular density. This mammogram was read with the assistance of [employer],an FDA approved computer aided detection system for mammography. The lifetime Tyrer-Cuzick score is 6.5 % Negative x-ray reports should not delay surgical consultation if a dominant or clinically suspicious mass is present. Not all breast cancers can be identified by mammography. Therefore, we recommend that you continue to perform regular breast self-examination and physical examination and then promptly contact your physician of any concerns or changes. Adenosis and dense breasts may obscure an underlying neoplasm. Assessment: BI-RADS/ACR category 2 mammogram. Benign Findings. Recommendation Routine screening mammogram of both breasts in 1 year. Electronically Signed By: José Miguel Gutierres DO 07/06/20 [id number]
== END ==
LOC: M WHC 14:52
PROVIDERS: ATTEND Nurse Practitioner Family
DX: Z12.31 Encounter for screening mammogram for malignant neoplasm of breast (principal)

== ENCOUNTER 2020-10-26 21:32 | Emergency (ER) | payer OTHER ==
[~2020-10-26] VITALS: Ht 154.9 cm; Wt 115.7 kg
[2020-10-26 21:32] VITALS: BP 143/89
[~2020-10-26 21:32] MED LIST changes: +ERGO500029 PO; -VITA50005 PO
== END 2020-10-26 22:07 | disposition left against medical advice (07) ==
LOC: M ED 21:32
DX: Z53.21 Procedure and treatment not carried out due to patient leaving prior to being seen by health care provider (principal)

== ENCOUNTER 2020-10-29 22:35 | Emergency (ER) | payer OTHER ==
[~2020-10-29] VITALS: Ht 154.9 cm; Wt 115.4 kg
[2020-10-29 22:38] VITALS: BP 136/80
[2020-10-30] MEDS ORDERED: SALA1TAB PO (01:50)
[2020-10-30] MEDS ORDERED: IBUP80TA PO (01:50)
[2020-10-30] MEDS ORDERED: CLEO300C2 PO (01:50)
== END 2020-10-30 02:08 | disposition home or self-care (01) ==
LOC: M ED 22:35
DX: K11.20 Sialoadenitis, unspecified (principal); E11.9 Type 2 diabetes mellitus without complications; E78.5 Hyperlipidemia, unspecified; Z88.0 Allergy status to penicillin; Z88.1 Allergy status to other antibiotic agents; Z91.012 Allergy to eggs; Z91.030 Bee allergy status; Z79.899 Other long term (current) drug therapy

== ENCOUNTER 2021-07-22 13:34 | Emergency (ER) | payer OTHER ==
[~2021-07-22] VITALS: Ht 152.4 cm; Wt 105.5 kg
[~2021-07-22 13:34] MED LIST changes: +CLEO300C2 PO; +SALA1TAB PO
[2021-07-22] MEDS ORDERED: IBUPROFEN 800 MG TAB PO ONE (16:15)
[2021-07-22] MEDS ORDERED: NAPR1TAB83 PO (16:18)
[2021-07-22 16:37] VITALS: BP 153/79
== END 2021-07-22 16:44 | disposition home or self-care (01) ==
LOC: M ED 13:34
DX: S60.921A Unspecified superficial injury of right hand, initial encounter (principal); W22.09XA Striking against other stationary object, initial encounter; Y92.009 Unspecified place in unspecified non-institutional (private) residence as the place of occurrence of the external cause; Y93.9 Activity, unspecified; Y99.9 Unspecified external cause status; F17.200 Nicotine dependence, unspecified, uncomplicated; Z88.0 Allergy status to penicillin; Z88.1 Allergy status to other antibiotic agents; Z91.030 Bee allergy status; Z91.012 Allergy to eggs

== ENCOUNTER → 2021-10-05 | Outpatient (CLI) | payer OTHER ==
[~2021-10-05] MED LIST changes: +NAPR1TAB83 PO
== END ==
LOC: M WHC 13:53
PROVIDERS: ATTEND Nurse Practitioner Family
DX: Z12.31 Encounter for screening mammogram for malignant neoplasm of breast (principal)

== ENCOUNTER 2021-10-19 16:13 | Emergency (ER) | payer OTHER ==
[~2021-10-19] VITALS: Ht 152.4 cm; Wt 115.3 kg
[2021-10-19 19:20] LABS: BASO % 0.3 % (0.0-1.0); EOS # 0.1 10^3/uL (0.0-0.5); EOS % 0.7 % (0.0-3.0); HEMATOCRIT 44.5 % (36.0-47.0); HEMOGLOBIN 15.2 g/dl (12.0-15.5); LYMPH # 3.1 10^3/uL (1.5-5.0); LYMPH % 21.1 % (24.0-44.0); MEAN CORPUSCULAR HEMOGLOBIN 31.3 pg (27.0-33.0); MEAN CORPUSCULAR HGB CONC 34.2 g/dl (32.0-36.5); MEAN CORPUSCULAR VOLUME 91.6 fl (80.0-96.0); MONO # 0.8 10^3/uL (0.0-0.8); MONO % 5.7 % (2.0-8.0); NEUTROPHILS # 10.7 10^3/uL (1.5-8.5); NEUTROPHILS % 71.9 % (36.0-66.0); PLATELET COUNT, AUTOMATED 272 10^3/uL (150-450); RED BLOOD COUNT 4.86 10^6/uL (4.00-5.40); WHITE BLOOD COUNT 14.8 10^3/uL (4.0-10.0)
[2021-10-19 19:57] LABS: ALBUMIN 3.4 GM/DL (3.2-5.2); ALT/SGPT 24 U/L (12-78); BILIRUBIN,DIRECT 0.3 MG/DL (0.0-0.2); BILIRUBIN,TOTAL 0.6 MG/DL (0.2-1.0); BLOOD UREA NITROGEN 9 MG/DL (7-18); CALCIUM LEVEL 9.1 MG/DL (8.5-10.1); CARBON DIOXIDE LEVEL 27 MEQ/L (21-32); CHLORIDE LEVEL 103 MEQ/L (98-107); GLOMERULAR FILTRATION RATE > 60.0 (>51); GLUCOSE, FASTING 118 MG/DL (70-100); LIPASE 75 U/L (73-393); POTASSIUM SERUM 4.2 MEQ/L (3.5-5.1); SODIUM LEVEL 135 MEQ/L (136-145); TOTAL PROTEIN 7.1 GM/DL (6.4-8.2)
[2021-10-19 19:59] LABS: CK-MB VALUE MASS < 1.0 NG/ML (<3.6); CPK CREATINE PHOSPHOKINASE 96 U/L (26-192); MB/CK RELATIVE INDEX 1.04 (< OR =4)
[2021-10-19 23:49] LABS: APPEARANCE, URINE MANUAL CLEAR (CLEAR); COLOR, URINE MANUAL YELLOW (YELLOW); SPECIFIC GRAVITY,URINE MANUAL 1.015 (1.002-1.035)
[2021-10-19 23:50] LABS: BILIRUBIN, URINE MANUAL NEGATIVE (NEGATIVE); BLOOD URINE MANUAL NEGATIVE (NEGATIVE); GLUCOSE, URINE (UA) MANUAL NEGATIVE (NEGATIVE); KETONE, URINE MANUAL NEGATIVE (NEGATIVE); LEUKOCYTE ESTERASE, URINE MAN NEGATIVE (NEGATIVE); NITRITE, URINE MANUAL NEGATIVE (NEGATIVE); PROTEIN, URINE MANUAL NEGATIVE (NEGATIVE); UROBILINOGEN, URINE MANUAL NORMAL (NORMAL)
[2021-10-20] MEDS ORDERED: ISOVUE-370 76% 100ML VIAL As Ordered ONE (00:49)
[2021-10-20] MEDS ORDERED: NS 1,000 ML IV ONE (00:55)
[2021-10-20] MEDS ORDERED: KETOROLAC 30 MG/ML 1ML VIAL IV ONE (03:00)
[2021-10-20] MEDS ORDERED: metroNIDAZOLE (FLAGYL) 500MG TABLET PO ONE (03:40)
[2021-10-20] MEDS ORDERED: CIPROFLOXACIN 500MG TABLET PO ONE (03:40)
[2021-10-20] MEDS ORDERED: OXYCODONE/APAP 5MG/325MG(HOME DOSE PACK) PO ONE (03:40)
[2021-10-20] MEDS ORDERED: METR-265 PO (03:41)
[2021-10-20] MEDS ORDERED: CIPR-249 PO (03:41)
[2021-10-20 03:57] VITALS: BP 135/62
== END 2021-10-20 03:59 | disposition home or self-care (01) ==
LOC: M ED 16:13
DX: K57.92 Diverticulitis of intestine, part unspecified, without perforation or abscess without bleeding (principal); E11.9 Type 2 diabetes mellitus without complications; E78.5 Hyperlipidemia, unspecified; Z88.0 Allergy status to penicillin; Z88.1 Allergy status to other antibiotic agents; Z91.012 Allergy to eggs; Z91.030 Bee allergy status; F17.210 Nicotine dependence, cigarettes, uncomplicated
CPT/HCPCS: 71046; 74177; 80048; 80076; 81002; 82550; 82553; 83690; 85025; 96361; 96374; 99284; J1885; Q9967

== ENCOUNTER 2021-11-23 18:36 | Emergency (ER) | payer OTHER ==
[~2021-11-23] VITALS: Ht 152.4 cm; Wt 114.7 kg
[~2021-11-23 18:36] MED LIST changes: +CIPR-249 PO; +METR-265 PO
[2021-11-23 18:38] VITALS: BP 159/92
[2021-11-24] MEDS ORDERED: PYRI1TAB5 PO (19:56)
[2021-11-24] MEDS ORDERED: CIPR-249 PO (19:56)
== END 2021-11-23 22:04 | disposition left against medical advice (07) ==
LOC: M ED 18:36
DX: Z53.21 Procedure and treatment not carried out due to patient leaving prior to being seen by health care provider (principal)

== ENCOUNTER → 2021-12-11 | Outpatient (CLI) | payer OTHER ==
[~2021-12-11] MED LIST changes: +PYRI1TAB5 PO
== END ==
LOC: M WHC 08:29
PROVIDERS: ATTEND Nurse Practitioner Family
DX: R16.0 Hepatomegaly, not elsewhere classified (principal)

== ENCOUNTER → 2022-02-22 | Outpatient (REF) | payer OTHER ==
[~2022-02-22] MED LIST changes: -DOXY-350 PO; +DOXY-444 PO
[2022-02-22 17:11] LABS: CHOLESTEROL RISK RATIO 6.05 (<5); HDL CHOLESTEROL 32.7 MG/DL (>40); LDL CHOLESTEROL 133.3 MG/DL (<100)
[2022-02-22 17:13] LABS: THYROID STIMULATING HORMONE 6.427 uIU/ML (0.55-4.78)
== END ==
LOC: M LAB REF 16:24
PROVIDERS: ATTEND Nurse Practitioner Family
DX: E03.9 Hypothyroidism, unspecified (principal); E78.5 Hyperlipidemia, unspecified; E11.8 Type 2 diabetes mellitus with unspecified complications

== ENCOUNTER → 2022-03-30 | Outpatient (REF) | payer OTHER ==
[2022-03-30 13:55] LABS: CHOLESTEROL RISK RATIO 6.1 (<5); HDL CHOLESTEROL 32.9 MG/DL (>40); LDL CHOLESTEROL 141.9 MG/DL (<100)
[2022-03-30 14:07] LABS: THYROID STIMULATING HORMONE 4.529 uIU/ML (0.55-4.78)
[2022-03-30 14:09] LABS: HEMOGLOBIN A1c 6.1 % (4.0-6.0)
== END ==
LOC: M LAB REF 12:43
PROVIDERS: ATTEND Nurse Practitioner Family
DX: E78.5 Hyperlipidemia, unspecified (principal); E11.8 Type 2 diabetes mellitus with unspecified complications; E03.9 Hypothyroidism, unspecified

== ENCOUNTER 2022-06-20 14:31 | Emergency (ER) | payer OTHER ==
[~2022-06-20] VITALS: Ht 152.4 cm; Wt 113.6 kg
[2022-06-20 16:07] LABS: BASO % 0.3 % (0.0-1.0); EOS # 0.1 10^3/uL (0.0-0.5); EOS % 1.2 % (0.0-3.0); HEMATOCRIT 46.2 % (36.0-47.0); HEMOGLOBIN 15.2 g/dl (12.0-15.5); LYMPH % 17.5 % (24.0-44.0); MEAN CORPUSCULAR HGB CONC 32.9 g/dl (32.0-36.5); MEAN CORPUSCULAR VOLUME 91.3 fl (80.0-96.0); MONO # 0.8 10^3/uL (0.0-0.8); MONO % 6.7 % (2.0-8.0); NEUTROPHILS # 8.4 10^3/uL (1.5-8.5); NEUTROPHILS % 73.9 % (36.0-66.0); PLATELET COUNT, AUTOMATED 256 10^3/uL (150-450); RED BLOOD COUNT 5.06 10^6/uL (4.00-5.40); WHITE BLOOD COUNT 11.4 10^3/uL (4.0-10.0)
[2022-06-20 16:18] LABS: INR 0.94; PARTIAL THROMBOPLASTIN TIME 28.6 SECONDS (24.8-34.2); PROTHROMBIN TIME 12.8 SECONDS (12.5-14.5)
[2022-06-20 16:36] LABS: ALBUMIN 3.3 G/DL (3.2-5.2); ALKALINE PHOSPHATASE 95 U/L (46-116); ALT/SGPT 23 U/L (7.0-40); AST/SGOT 21 U/L (<34); BILIRUBIN,DIRECT 0.1 MG/DL (<0.4); BILIRUBIN,TOTAL 0.5 MG/DL (0.3-1.2); BLOOD UREA NITROGEN 8 MG/DL (9-23); CALCIUM LEVEL 9.1 MG/DL (8.5-10.1); CARBON DIOXIDE LEVEL 28 MMOL/L (20-31); CHLORIDE LEVEL 103 MMOL/L (98-107); CK-MB VALUE MASS < 1.0 NG/ML (<3.6); CPK CREATINE PHOSPHOKINASE 78 U/L (34-145); CREATININE FOR GFR 0.78 MG/DL (0.55-1.30); GLOMERULAR FILTRATION RATE > 60.0 (>51); GLUCOSE, FASTING 129 MG/DL (60-100); MB/CK RELATIVE INDEX 1.28 (< OR =4); POTASSIUM SERUM 4.3 MMOL/L (3.5-5.1); SODIUM LEVEL 136 MMOL/L (136-145); TOTAL PROTEIN 7.2 G/DL (5.7-8.2)
[2022-06-20 18:00] VITALS: BP 148/82
[2022-06-20] MEDS ORDERED: MECL-86 PO (18:12)
== END 2022-06-20 18:22 | disposition home or self-care (01) ==
LOC: M ED 14:31 → EDBD 14:31 → M ED 18:22
DX: H81.4 Vertigo of central origin (principal); I10 Essential (primary) hypertension; E11.9 Type 2 diabetes mellitus without complications; J45.909 Unspecified asthma, uncomplicated; E78.5 Hyperlipidemia, unspecified; E03.9 Hypothyroidism, unspecified; G47.33 Obstructive sleep apnea (adult) (pediatric); F17.200 Nicotine dependence, unspecified, uncomplicated; Z88.0 Allergy status to penicillin; Z88.1 Allergy status to other antibiotic agents; Z91.012 Allergy to eggs; Z91.030 Bee allergy status; Z79.899 Other long term (current) drug therapy

== ENCOUNTER 2022-06-29 06:21 | Emergency (ER) | payer OTHER ==
[~2022-06-29] VITALS: Ht 152.4 cm; Wt 118.4 kg
[~2022-06-29 06:21] MED LIST changes: +MECL-86 PO
[2022-06-29] MEDS ORDERED: NS 1,000 ML IV ONE (07:35)
[2022-06-29 07:39] LABS: BASO % 0.3 % (0.0-1.0); EOS # 0.2 10^3/uL (0.0-0.5); EOS % 1.6 % (0.0-3.0); HEMATOCRIT 46.6 % (36.0-47.0); HEMOGLOBIN 15.1 g/dl (12.0-15.5); LYMPH # 2.3 10^3/uL (1.5-5.0); LYMPH % 19.7 % (24.0-44.0); MEAN CORPUSCULAR HEMOGLOBIN 30.3 pg (27.0-33.0); MEAN CORPUSCULAR HGB CONC 32.4 g/dl (32.0-36.5); MEAN CORPUSCULAR VOLUME 93.4 fl (80.0-96.0); MONO # 0.7 10^3/uL (0.0-0.8); MONO % 5.6 % (2.0-8.0); NEUTROPHILS # 8.6 10^3/uL (1.5-8.5); NEUTROPHILS % 72.6 % (36.0-66.0); PLATELET COUNT, AUTOMATED 257 10^3/uL (150-450); RED BLOOD COUNT 4.99 10^6/uL (4.00-5.40); WHITE BLOOD COUNT 11.8 10^3/uL (4.0-10.0)
[2022-06-29] MEDS ORDERED: MORPHINE 4 MG/ML 1ML VIAL IV ONE (08:00)
[2022-06-29] MEDS ORDERED: ONDANSETRON 4MG 2ML VIAL IV ONE (08:00)
[2022-06-29 08:19] LABS: BLOOD UREA NITROGEN 10 MG/DL (9-23); CALCIUM LEVEL 8.3 MG/DL (8.5-10.1); CARBON DIOXIDE LEVEL 24 MMOL/L (20-31); CHLORIDE LEVEL 105 MMOL/L (98-107); CREATININE FOR GFR 0.85 MG/DL (0.55-1.30); GLOMERULAR FILTRATION RATE > 60.0 (>51); GLUCOSE, FASTING 115 MG/DL (60-100); POTASSIUM SERUM 5.6 MMOL/L (3.5-5.1); SODIUM LEVEL 137 MMOL/L (136-145)
[2022-06-29] MEDS ORDERED: ISOVUE-370 76% 100ML VIAL As Ordered ONE (08:32)
[2022-06-29] MEDS ORDERED: CIPROFLOXACIN 500MG TABLET PO ONE (10:40)
[2022-06-29] MEDS ORDERED: metroNIDAZOLE (FLAGYL) 500MG TABLET PO ONE (10:40)
[2022-06-29] MEDS ORDERED: KETOROLAC 30 MG/ML 1ML VIAL IV ONE (10:40)
[2022-06-29] MEDS ORDERED: METR-265 PO (10:42)
[2022-06-29] MEDS ORDERED: CIPR-249 PO (10:42)
[2022-06-29 11:06] VITALS: BP 107/67
== END 2022-06-29 11:44 | disposition home or self-care (01) ==
LOC: M ED 06:21
DX: K57.32 Diverticulitis of large intestine without perforation or abscess without bleeding (principal); J45.909 Unspecified asthma, uncomplicated; F17.200 Nicotine dependence, unspecified, uncomplicated; Z88.0 Allergy status to penicillin; Z88.1 Allergy status to other antibiotic agents; Z91.012 Allergy to eggs; Z91.030 Bee allergy status; Z79.51 Long term (current) use of inhaled steroids
CPT/HCPCS: 74177; 80048; 81001; 84132; 85025; 96374; 96375; 99284; J1885; J2405; Q9967

== ENCOUNTER → 2022-07-09 | Outpatient (REF) | payer OTHER ==
[2022-07-09 13:57] LABS: HEMOGLOBIN A1c 6.2 % (4.0-6.0)
[2022-07-09 14:12] LABS: CHOLESTEROL RISK RATIO 6.18 (<5); HDL CHOLESTEROL 34.3 MG/DL (>40); LDL CHOLESTEROL 132.1 MG/DL (<100); NON-HDL-C 177.7 MG/DL
[2022-07-09 14:14] LABS: THYROID STIMULATING HORMONE 5.172 uIU/ML (0.55-4.78)
== END ==
LOC: M LAB REF 12:16
PROVIDERS: ATTEND Nurse Practitioner Family
DX: E03.9 Hypothyroidism, unspecified (principal); R73.03 Prediabetes; E78.5 Hyperlipidemia, unspecified

== ENCOUNTER → 2022-10-11 | Outpatient (REF) | payer OTHER ==
[2022-10-11 19:19] LABS: CHOLESTEROL RISK RATIO 7.08 (<5); HDL CHOLESTEROL 33.6 MG/DL (>40); LDL CHOLESTEROL 159.8 MG/DL (<100); NON-HDL-C 204.4 MG/DL; THYROID STIMULATING HORMONE 5.244 uIU/ML (0.55-4.78)
== END ==
LOC: M LAB REF 16:24
PROVIDERS: ATTEND Nurse Practitioner Family
DX: R73.03 Prediabetes (principal); E78.5 Hyperlipidemia, unspecified; E03.9 Hypothyroidism, unspecified

== ENCOUNTER → 2022-10-16 | Outpatient (REF) | payer MEDICARE, MEDICAID ==
[2022-10-16 17:15] LABS: CREATININE, URINE 179.5 MG/DL; MAU/CREAT RATIO 3.3 MCG/MG (0.0-30.0)
== END ==
LOC: M LAB REF 15:58
PROVIDERS: ATTEND Nurse Practitioner Family
DX: E11.8 Type 2 diabetes mellitus with unspecified complications (principal)

== ENCOUNTER → 2022-11-01 | Outpatient (CLI) | payer MEDICARE, MEDICAID | LOC: M WHC 09:47 | PROVIDERS: ATTEND Nurse Practitioner Family | DX: Z12.31 Encounter for screening mammogram for malignant neoplasm of breast (principal) ==

== ENCOUNTER 2023-01-07 06:57 | Day surgery (SDC) | payer MEDICARE, MEDICAID ==
[~2023-01-07] VITALS: Ht 154.9 cm; Wt 115.8 kg
[~2023-01-07 06:57] MED LIST changes: +ATOR40TA75 PO; +EPIP0.3I2 IM; +LORA-243 PO; +NS 1,000 ML IV ONE; +PROA1AER2 INH; +SYNT25TA PO; +VITA100093 PO
[2023-01-07] MEDS ORDERED: propofoL 500 MG/50 ML VIAL As Ordered ONE (07:13)
[2023-01-07] MEDS ORDERED: fentaNYL 100 MCG/2 ML INJECTION As Ordered ONE (07:13)
[2023-01-07] MEDS ORDERED: LIDOCAINE 2% 100MG/5ML SDV (FOR ANES.) As Ordered ONE (07:16)
[2023-01-07 08:52] VITALS: TEMP 98.2
[2023-01-07 09:14] VITALS: BP 108/57; O2SAT 94
== END 2023-01-07 09:20 | disposition home or self-care (01) ==
LOC: M OPP 06:57
PROVIDERS: ATTEND Internal Medicine Gastroenterology
DX: D12.4 Benign neoplasm of descending colon (principal); K59.00 Constipation, unspecified; R19.5 Other fecal abnormalities; R13.11 Dysphagia, oral phase; R13.12 Dysphagia, oropharyngeal phase; G47.9 Sleep disorder, unspecified; F17.200 Nicotine dependence, unspecified, uncomplicated; Z79.02 Long term (current) use of antithrombotics/antiplatelets; Z79.51 Long term (current) use of inhaled steroids; Z79.890 Hormone replacement therapy; Z79.899 Other long term (current) drug therapy; Z88.0 Allergy status to penicillin; Z88.1 Allergy status to other antibiotic agents; Z91.012 Allergy to eggs; Z91.030 Bee allergy status
CPT/HCPCS: 43235; 43450; 45385; 88305; J3010

== ENCOUNTER → 2023-04-18 | Outpatient (REF) | payer MEDICARE, MEDICAID ==
[~2023-04-18] MED LIST changes: -ALLE1TAB23 PO; +FEXO-157 PO; -NS 1,000 ML IV ONE
[2023-04-18 14:27] LABS: CHOLESTEROL RISK RATIO 5.9 (<5); HDL CHOLESTEROL 36.6 MG/DL (>40); NON-HDL-C 179.4 MG/DL
[2023-04-18 14:28] LABS: THYROID STIMULATING HORMONE 5.962 uIU/ML (0.55-4.78)
== END ==
LOC: M LAB REF 12:36
PROVIDERS: ATTEND Nurse Practitioner Family
DX: E03.9 Hypothyroidism, unspecified (principal); E78.5 Hyperlipidemia, unspecified

== ENCOUNTER 2023-06-16 01:29 | Inpatient (IN) | payer MEDICARE, MEDICAID ==
[~2023-06-16] VITALS: Ht 154.9 cm; Wt 116.1 kg
[2023-06-16] MEDS: NS 1,000 ML IV ONE (02:02)
[2023-06-16 02:08] LABS: BASO # 0.1 10^3/uL (0.0-0.2); BASO % 0.4 % (0.0-1.0); EOS # 0.2 10^3/uL (0.0-0.5); EOS % 1.3 % (0.0-3.0); HEMATOCRIT 45.6 % (36.0-47.0); HEMOGLOBIN 15.1 g/dl (12.0-15.5); LYMPH % 26.2 % (24.0-44.0); MEAN CORPUSCULAR HGB CONC 33.1 g/dl (32.0-36.5); MEAN CORPUSCULAR VOLUME 90.7 fl (80.0-96.0); MONO # 0.9 10^3/uL (0.0-0.8); NEUTROPHILS # 10.1 10^3/uL (1.5-8.5); NEUTROPHILS % 65.8 % (36.0-66.0); PLATELET COUNT, AUTOMATED 269 10^3/uL (150-450); RED BLOOD COUNT 5.03 10^6/uL (4.00-5.40); WHITE BLOOD COUNT 15.3 10^3/uL (4.0-10.0)
[2023-06-16 02:38] LABS: LIPASE 36 U/L (12-53)
[2023-06-16 02:40] LABS: ALBUMIN 3.2 G/DL (3.2-5.2); ALKALINE PHOSPHATASE 112 U/L (46-116); ALT/SGPT 22 U/L (7.0-40); AST/SGOT 16 U/L (<34); BILIRUBIN,DIRECT 0.1 MG/DL (<0.4); BILIRUBIN,TOTAL 0.3 MG/DL (0.3-1.2); BLOOD UREA NITROGEN 17 MG/DL (9-23); CALCIUM LEVEL 9.2 MG/DL (8.5-10.1); CARBON DIOXIDE LEVEL 30 MMOL/L (20-31); CHLORIDE LEVEL 104 MMOL/L (98-107); CREATININE FOR GFR 0.91 MG/DL (0.55-1.30); GLOMERULAR FILTRATION RATE > 60.0 (>51); GLUCOSE, FASTING 104 MG/DL (60-100); POTASSIUM SERUM 4.2 MMOL/L (3.5-5.1); SODIUM LEVEL 138 MMOL/L (136-145); TOTAL PROTEIN 6.8 G/DL (5.7-8.2)
[2023-06-16] MEDS ORDERED: ISOVUE-370 76% 100ML VIAL As Ordered ONE (02:47)
[2023-06-16] MEDS: MORPHINE 2 MG/ML 1ML VIAL IV ONE (03:37)
[2023-06-16] MEDS: LevoFLOXacin IV 750 MG in IV 1 EA IV ONE (04:48)
[2023-06-16] MEDS ORDERED: ALBU8.5H INH (05:59)
[2023-06-16] MEDS ORDERED: VITA200016 PO (05:59)
[2023-06-16] MEDS: LEVOTHYROXINE 25MCG TABLET (0.025MG) PO SCH (06:00)
[2023-06-16] MEDS ORDERED: HOME MED LIST COMPLETE! XX SCH (06:00)
[2023-06-16] MEDS: metroNIDAZOLE 500 MG in IV 1 EA IV ONE (06:14)
[2023-06-16] MEDS: NS 1,000 ML IV SCH (06:30)
[2023-06-16] MEDS ORDERED: ALBUTEROL 90 MCG/ACT 8GM HFA INHALER INH PRN (07:10)
[2023-06-16] MEDS: LORATADINE 10 MG TAB PO SCH (09:29)
[2023-06-16] MEDS: HEPARIN SOD (PORCINE) 5000UNITS/ML 1ML VIAL/SYRINGE SC SCH (09:29)
[2023-06-16] MEDS: PANTOPRAZOLE 40MG VIAL IV SCH (09:29)
[2023-06-16] MEDS ORDERED: MORPHINE 2 MG/ML 1ML VIAL IV PRN (10:00)
[2023-06-16] MEDS: MORPHINE 2 MG/ML 1ML VIAL IV PRN (10:15)
[2023-06-16 11:05] VITALS: BP 131/83; TEMP 98.1; O2SAT 95
[2023-06-16] MEDS: metroNIDAZOLE 500 MG in IV 1 EA IV SCH (13:05)
[2023-06-16 14:00] VITALS: BP 124/83; TEMP 97.9; O2SAT 98
[2023-06-16 21:14] VITALS: BP 140/85; TEMP 97.9; O2SAT 95
[2023-06-16] MEDS: ATORVASTATIN 20 MG TAB PO SCH (21:14)
[2023-06-17 05:15] VITALS: BP 136/83; TEMP 98.1; O2SAT 93
[2023-06-17] MEDS: CIPROFLOXACIN 200 MG in IV 1 EA IV SCH (05:21)
[2023-06-17 06:15] LABS: HEMATOCRIT 40.4 % (36.0-47.0); HEMOGLOBIN 13.4 g/dl (12.0-15.5); MEAN CORPUSCULAR HEMOGLOBIN 30.5 pg (27.0-33.0); MEAN CORPUSCULAR HGB CONC 33.2 g/dl (32.0-36.5); PLATELET COUNT, AUTOMATED 198 10^3/uL (150-450); RED BLOOD COUNT 4.39 10^6/uL (4.00-5.40); WHITE BLOOD COUNT 12.5 10^3/uL (4.0-10.0)
[2023-06-17 06:47] LABS: ALBUMIN 2.6 G/DL (3.2-5.2); ALKALINE PHOSPHATASE 82 U/L (46-116); ALT/SGPT 15 U/L (7.0-40); AST/SGOT 17 U/L (<34); BILIRUBIN,TOTAL 0.7 MG/DL (0.3-1.2); BLOOD UREA NITROGEN 9 MG/DL (9-23); CALCIUM LEVEL 7.9 MG/DL (8.5-10.1); CARBON DIOXIDE LEVEL 26 MMOL/L (20-31); CHLORIDE LEVEL 105 MMOL/L (98-107); CREATININE FOR GFR 0.83 MG/DL (0.55-1.30); GLOMERULAR FILTRATION RATE > 60.0 (>51); GLUCOSE, FASTING 110 MG/DL (60-100); POTASSIUM SERUM 4.1 MMOL/L (3.5-5.1); SODIUM LEVEL 138 MMOL/L (136-145); TOTAL PROTEIN 5.7 G/DL (5.7-8.2)
[2023-06-17 14:00] VITALS: BP 131/79; TEMP 98.6; O2SAT 98
[2023-06-17 21:00] VITALS: BP 143/95; TEMP 97.9; O2SAT 98
[2023-06-18 05:42] VITALS: BP 140/80; TEMP 97.9; O2SAT 97
[2023-06-18 06:32] LABS: HEMATOCRIT 39.3 % (36.0-47.0); HEMOGLOBIN 12.9 g/dl (12.0-15.5); MEAN CORPUSCULAR HEMOGLOBIN 30.3 pg (27.0-33.0); MEAN CORPUSCULAR HGB CONC 32.8 g/dl (32.0-36.5); MEAN CORPUSCULAR VOLUME 92.3 fl (80.0-96.0); PLATELET COUNT, AUTOMATED 213 10^3/uL (150-450); RED BLOOD COUNT 4.26 10^6/uL (4.00-5.40)
[2023-06-18 07:03] LABS: ALBUMIN 2.7 G/DL (3.2-5.2); ALKALINE PHOSPHATASE 76 U/L (46-116); ALT/SGPT 10 U/L (7.0-40); AST/SGOT 15 U/L (<34); BILIRUBIN,TOTAL 0.6 MG/DL (0.3-1.2); BLOOD UREA NITROGEN 8 MG/DL (9-23); CALCIUM LEVEL 8.4 MG/DL (8.5-10.1); CARBON DIOXIDE LEVEL 28 MMOL/L (20-31); CHLORIDE LEVEL 106 MMOL/L (98-107); CREATININE FOR GFR 0.79 MG/DL (0.55-1.30); GLOMERULAR FILTRATION RATE > 60.0 (>51); GLUCOSE, FASTING 93 MG/DL (60-100); POTASSIUM SERUM 3.8 MMOL/L (3.5-5.1); SODIUM LEVEL 140 MMOL/L (136-145); TOTAL PROTEIN 5.6 G/DL (5.7-8.2)
[2023-06-18] MEDS ORDERED: CIPR250T3 PO (10:34)
[2023-06-18] MEDS ORDERED: METR-265 PO (10:34)
[2023-06-18] MEDS ORDERED: BACI1TAB21 PO (10:34)
== END 2023-06-18 11:26 | disposition home or self-care (01) | DRG 872 ==
LOC: M ED 01:29 → M ED INP 05:45 → M MSPAV 10:55
PROVIDERS: ADMIT Internal Medicine; ATTEND Student in an Organized Health Care Education/Training Program
DX: A41.9 Sepsis, unspecified organism (principal); K57.32 Diverticulitis of large intestine without perforation or abscess without bleeding; Z68.42 Body mass index [BMI] 45.0-49.9, adult; E03.9 Hypothyroidism, unspecified; R73.03 Prediabetes; E78.5 Hyperlipidemia, unspecified; Z90.49 Acquired absence of other specified parts of digestive tract; E66.01 Morbid (severe) obesity due to excess calories; H54.61 Unqualified visual loss, right eye, normal vision left eye; F17.200 Nicotine dependence, unspecified, uncomplicated; Z79.890 Hormone replacement therapy; Z79.899 Other long term (current) drug therapy; Z88.0 Allergy status to penicillin; Z88.1 Allergy status to other antibiotic agents; Z91.012 Allergy to eggs; Z91.030 Bee allergy status

== ENCOUNTER 2023-06-25 10:55 | Emergency (ER) | payer MEDICARE, MEDICAID ==
[~2023-06-25] VITALS: Ht 152.4 cm; Wt 113.6 kg
[~2023-06-25 10:55] MED LIST changes: +ALBU8.5H INH; +BACI1TAB21 PO; +CIPR250T3 PO; +VITA200016 PO
[2023-06-25 12:03] LABS: BASO % 0.3 % (0.0-1.0); EOS # 0.2 10^3/uL (0.0-0.5); HEMATOCRIT 46.3 % (36.0-47.0); HEMOGLOBIN 15.3 g/dl (12.0-15.5); LYMPH # 2.6 10^3/uL (1.5-5.0); LYMPH % 22.2 % (24.0-44.0); MEAN CORPUSCULAR HEMOGLOBIN 30.2 pg (27.0-33.0); MEAN CORPUSCULAR VOLUME 91.5 fl (80.0-96.0); MONO # 0.8 10^3/uL (0.0-0.8); MONO % 6.4 % (2.0-8.0); NEUTROPHILS # 8.1 10^3/uL (1.5-8.5); NEUTROPHILS % 68.8 % (36.0-66.0); PLATELET COUNT, AUTOMATED 326 10^3/uL (150-450); RED BLOOD COUNT 5.06 10^6/uL (4.00-5.40); WHITE BLOOD COUNT 11.7 10^3/uL (4.0-10.0)
[2023-06-25] MEDS: KETOROLAC 30 MG/ML 1ML VIAL IV ONE (12:05)
[2023-06-25 12:29] LABS: ALBUMIN 3.3 G/DL (3.2-5.2); BILIRUBIN,DIRECT 0.2 MG/DL (<0.4); BILIRUBIN,TOTAL 0.6 MG/DL (0.3-1.2); TOTAL PROTEIN 6.8 G/DL (5.7-8.2)
[2023-06-25 13:49] VITALS: BP 129/76; TEMP 97.9; O2SAT 95
== END 2023-06-25 14:08 | disposition home or self-care (01) ==
LOC: M ED 10:55
DX: K57.32 Diverticulitis of large intestine without perforation or abscess without bleeding (principal); I10 Essential (primary) hypertension; Z88.0 Allergy status to penicillin; Z88.1 Allergy status to other antibiotic agents; Z91.030 Bee allergy status; Z91.012 Allergy to eggs; Z79.51 Long term (current) use of inhaled steroids; Z79.899 Other long term (current) drug therapy

== ENCOUNTER → 2023-08-21 | Outpatient (REF) | payer MEDICARE, MEDICAID ==
[~2023-08-21] MED LIST changes: +DOXY-440 PO; -DOXY-444 PO
[2023-08-21 19:03] LABS: TOTAL 25(OH) VITAMIN D 28.9 NG/ML (20.0-100.0)
[2023-08-21 19:04] LABS: THYROID STIMULATING HORMONE 3.983 uIU/ML (0.55-4.78)
[2023-08-21 19:05] LABS: CHOLESTEROL RISK RATIO 4.51 (<5); MAGNESIUM LEVEL 1.9 MG/DL (1.8-2.4)
== END ==
LOC: M LAB REF 16:31
PROVIDERS: ATTEND Nurse Practitioner Family
DX: E03.9 Hypothyroidism, unspecified (principal); E78.5 Hyperlipidemia, unspecified; E66.01 Morbid (severe) obesity due to excess calories; E55.9 Vitamin D deficiency, unspecified; E11.9 Type 2 diabetes mellitus without complications

== ENCOUNTER 2023-11-29 17:54 | Emergency (ER) | payer MEDICARE, MEDICAID ==
[~2023-11-29] VITALS: Ht 152.4 cm; Wt 105.5 kg
[~2023-11-29 17:54] MED LIST changes: -FEXO-157 PO; +FEXO-63 PO; +GABA-1172 PO; -GABA-282 PO
[2023-11-29 18:04] VITALS: TEMP 98.4
[2023-11-29 19:28] LABS: BASO # 0.1 10^3/uL (0.0-0.2); BASO % 0.5 % (0.0-1.0); EOS # 0.1 10^3/uL (0.0-0.5); EOS % 0.7 % (0.0-3.0); HEMATOCRIT 44.4 % (36.0-47.0); HEMOGLOBIN 14.6 g/dl (12.0-15.5); LYMPH # 4.6 10^3/uL (1.5-5.0); LYMPH % 23.7 % (24.0-44.0); MEAN CORPUSCULAR HEMOGLOBIN 30.8 pg (27.0-33.0); MEAN CORPUSCULAR HGB CONC 32.9 g/dl (32.0-36.5); MEAN CORPUSCULAR VOLUME 93.7 fl (80.0-96.0); MONO # 1.1 10^3/uL (0.0-0.8); MONO % 5.6 % (2.0-8.0); NEUTROPHILS # 13.3 10^3/uL (1.5-8.5); NEUTROPHILS % 68.8 % (36.0-66.0); PLATELET COUNT, AUTOMATED 263 10^3/uL (150-450); RED BLOOD COUNT 4.74 10^6/uL (4.00-5.40); WHITE BLOOD COUNT 19.3 10^3/uL (4.0-10.0)
[2023-11-29 19:52] LABS: CK-MB VALUE MASS < 1.0 NG/ML (<3.6)
[2023-11-29 19:54] LABS: ALBUMIN 3.2 G/DL (3.2-5.2); ALKALINE PHOSPHATASE 99 U/L (46-116); ALT/SGPT 20 U/L (7.0-40); AST/SGOT 10 U/L (<34); BILIRUBIN,DIRECT < 0.1 MG/DL (<0.4); BILIRUBIN,TOTAL 0.4 MG/DL (0.3-1.2); BLOOD UREA NITROGEN 16 MG/DL (9-23); CALCIUM LEVEL 9.5 MG/DL (8.5-10.1); CARBON DIOXIDE LEVEL 29 MMOL/L (20-31); CHLORIDE LEVEL 106 MMOL/L (98-107); CPK CREATINE PHOSPHOKINASE 52 U/L (34-145); CREATININE FOR GFR 0.94 MG/DL (0.55-1.30); GLOMERULAR FILTRATION RATE > 60.0 (>51); GLUCOSE, FASTING 110 MG/DL (60-100); MB/CK RELATIVE INDEX 1.92 (< OR =4); POTASSIUM SERUM 3.9 MMOL/L (3.5-5.1); SODIUM LEVEL 139 MMOL/L (136-145); TOTAL PROTEIN 6.7 G/DL (5.7-8.2)
[2023-11-29] MEDS ORDERED: ISOVUE-370 76% 100ML VIAL As Ordered ONE (20:39)
[2023-11-29 21:22] LABS: CK-MB VALUE MASS < 1.0 NG/ML (<3.6)
[2023-11-29 21:24] LABS: CPK CREATINE PHOSPHOKINASE 50 U/L (34-145)
[2023-11-29 23:00] VITALS: BP 135/76; O2SAT 96
[2023-11-29 23:09] VITALS: O2SAT 95
== END 2023-11-29 23:37 | disposition home or self-care (01) ==
LOC: EDUNIT# 17:54 → EDBD 17:54 → M ED 17:54
DX: J02.9 Acute pharyngitis, unspecified (principal); B34.1 Enterovirus infection, unspecified; E78.5 Hyperlipidemia, unspecified; E03.9 Hypothyroidism, unspecified; Z88.0 Allergy status to penicillin; Z88.1 Allergy status to other antibiotic agents; Z91.030 Bee allergy status; Z91.012 Allergy to eggs; Z79.51 Long term (current) use of inhaled steroids; Z79.899 Other long term (current) drug therapy
CPT/HCPCS: 36415; 70491; 71046; 71275; 80048; 80076; 82550; 82553; 84484; 85025; 87040; 87486; 87581; 87633; 87798; 87880; 93005; 93041; 94760; 99285; Q9967

== ENCOUNTER → 2024-09-11 | Outpatient (REF) | payer MEDICARE, MEDICAID ==
[~2024-09-11] MED LIST changes: -LIDO4CRE4 TOP; +LIDO5CRE7 TOP
[2024-09-11 12:44] LABS: BASO # 0.1 10^3/uL (0.0-0.2); BASO % 0.5 % (0.0-1.0); EOS # 0.3 10^3/uL (0.0-0.5); EOS % 2.5 % (0.0-3.0); LYMPH # 2.4 10^3/uL (1.5-5.0); LYMPH % 21.8 % (24.0-44.0); MONO # 0.6 10^3/uL (0.0-0.8); MONO % 5.5 % (2.0-8.0); NEUTROPHILS # 7.7 10^3/uL (1.5-8.5); NEUTROPHILS % 69.5 % (36.0-66.0); PLATELET COUNT, AUTOMATED 273 10^3/uL (150-450)
== END ==
LOC: M LAB REF 12:01
PROVIDERS: ATTEND Student in an Organized Health Care Education/Training Program
DX: R22.32 Localized swelling, mass and lump, left upper limb (principal)

== ENCOUNTER → 2024-10-02 | Outpatient (CLI) | payer MEDICARE, MEDICAID | LOC: M WHC 09:38 | PROVIDERS: ATTEND Student in an Organized Health Care Education/Training Program | DX: Z12.31 Encounter for screening mammogram for malignant neoplasm of breast (principal) ==

== ENCOUNTER → 2024-10-21 | Outpatient (CLI) | payer MEDICARE, MEDICAID ==
[~2024-10-21] MED LIST changes: -IBUP-1022 PO; +IBUP600T42 PO
== END ==
LOC: M WHC 13:07
PROVIDERS: ATTEND Student in an Organized Health Care Education/Training Program
DX: R22.32 Localized swelling, mass and lump, left upper limb (principal); L72.0 Epidermal cyst; N64.59 Other signs and symptoms in breast

== ENCOUNTER → 2024-11-05 | Outpatient (REF) | payer MEDICARE, MEDICAID ==
[2024-11-05 13:35] LABS: ALT/SGPT 25.0 U/L (7.0-40); AST/SGOT 21.0 U/L (<34); CALCIUM LEVEL 9.2 MG/DL (8.3-10.6); CARBON DIOXIDE LEVEL 26.0 MMOL/L (20-31); CHLORIDE LEVEL 106.0 MMOL/L (98-107); CHOLESTEROL LEVEL 218.0 MG/DL (<200); CHOLESTEROL RISK RATIO 7.29 (<5); CREATININE FOR GFR 0.89 MG/DL (0.55-1.30); GLOMERULAR FILTRATION RATE 74.2 (>45); LDL CHOLESTEROL 130.3 MG/DL (<100); NON-HDL-C 188.1 MG/DL; POTASSIUM SERUM 4.2 MMOL/L (3.5-5.1); SODIUM LEVEL 143.0 MMOL/L (136-145); TRIGLYCERIDES LEVEL 289.0 MG/DL (<150)
[2024-11-05 13:37] LABS: TOTAL 25(OH) VITAMIN D 27.6 NG/ML (20.0-100.0)
[2024-11-05 13:39] LABS: ESTIMATED AVERAGE GLUCOSE 148.0 MG/DL (60-110)
== END ==
LOC: M LAB REF 12:14
PROVIDERS: ATTEND Student in an Organized Health Care Education/Training Program
DX: E55.9 Vitamin D deficiency, unspecified (principal); Z68.42 Body mass index [BMI] 45.0-49.9, adult; Z79.899 Other long term (current) drug therapy